=== PATIENT | female | born 1970 | race Caucasian/White ===

== ENCOUNTER 2020-08-30 02:47 | Inpatient (IN) ==
[2020-08-30 03:25] LABS: Basophils # 0.1 10*3/uL (0.0-0.2); Basophils % 0.6 % (0.0-0.8); Eosinophils # 0.3 10*3/uL (0.0-0.87); Eosinophils % 2.7 % (0.00-10.9); Hematocrit 36.8 VOL% (35.7-47.0); Hemoglobin 12.5 GM/DL (12.0-16.0); Immature Granulocytes % 0.4 %; Immature Granulocytes Absolute 0.04 #; Lymphocytes # 1.4 10*3/uL (1.4-4.0); Lymphocytes % 15.1 % (21.3-54.2); Mean Corpuscular Volume 90.9 FL (87-102); Mean Platelet Volume 10.6 FL (9.6-12.0); Monocytes % 9.5 % (1.7-12.7); Neutrophils % 71.7 % (38.7-73.9); Platelet Count 226 T/CUMM (130-400); Red Blood Count 4.05 MC/CUMM (3.8-5.5); Red Cell Distribution Width 13.2 % (9.3-17.3); White Blood Count 9.5 T/CUMM (4-12)
[2020-08-30 03:50] LABS: Barbiturates Screen,Urine Negative (Negative); Benzodiazepines Screen,Urine Negative (Negative); Cannabinoid Screen,Urine Positive (Negative); Opiate Screen,Urine Negative (Negative); Phencyclidine Screen,Urine Negative (Negative)
[2020-08-30 03:56] LABS: Alanine Aminotransferase 22 U/L (13-56); Albumin 3.3 G/DL (3.4-5.0); Alkaline Phosphatase 142 U/L (45-117); Aspartate Amino Transferase 14 U/L (0-37); Bilirubin,Total < 0.39 MG/DL (0.2-1.0); Blood Urea Nitrogen 12 MG/DL (7-18); Calcium 8.7 MG/DL (8.5-10.1); Carbon Dioxide 23 MMOL/L (21-32); Estimated Glom Filtration Rate 96 ML/MIN; Glucose 122 MG/DL (74-106); Osmolality,Calculated 273.8 MOS/KG (273-304); Potassium 3.1 MMOL/L (3.5-5.1); Sodium 137 MMOL/L (136-145); Total Protein 7.5 G/DL (6.4-8.2)
[2020-08-30 04:03] LABS: Bilirubin,Urine Negative (Negative); Blood, Urine Moderate mg/dL (Negative); Glucose,Urine (UA) Negative (Negative); Ketones,Urine Negative (Negative); Mucus,Urine Many /LPF (Occasional); Nitrite,Urine Negative (Negative); Protein,Urine 30 MG/DL; RBC,Urine 5 /HPF (0-4); Squamous Epithelial Cell,Urine Occasional /HPF (0-10); Urine Appearance CLEAR (Clear); Urine Color Yellow (Yellow); Urine Specific Gravity 1.028 (1.001-1.035)
[2020-08-30] MEDS ORDERED: ENOXAPARIN 30 MG/0.3 ML SYRINGE SUBCUT STA (06:10)
[2020-08-30] MEDS ORDERED: ENOXAPARIN 100 MG/ML SYRINGE SUBCUT ONE (06:26)
[2020-08-30] MEDS ORDERED: ONDANSETRON 4 MG/2 ML VIAL IV PRN (09:08)
[2020-08-30] MEDS ORDERED: GLUCAGON 1 MG VIAL IM PRN (09:08)
[2020-08-30] MEDS ORDERED: DEXTROSE 50% 25 GM/50 ML VIAL IV PRN (09:08)
[2020-08-30] MEDS ORDERED: ACETAMINOPHEN 325 MG TABLET PO PRN (09:08)
[2020-08-30] MEDS ORDERED: ALBUTEROL/IPRATROPIUM 3 ML NEB RESP TX PRN (10:43)
[2020-08-30] MEDS: OLANZapine 5 MG TABLET PO SCH (11:09)
[2020-08-30] MEDS: POTASSIUM CHLORIDE 20 MEQ TABLET PO SCH ×2 (11:10→16:43)
[2020-08-30] MEDS: carBAMazepine 200 MG TABLET PO SCH ×2 (16:55→21:41)
[2020-08-30] MEDS: WARFARIN 5 MG TABLET PO SCH (17:17)
[2020-08-30] MEDS: ENOXAPARIN 100 MG/ML SYRINGE SUBCUT SCH (17:17)
[2020-08-30] MEDS: NICOTINE 21 MG/24 HR PATCH TRANSDERM PRN (19:14)
[2020-08-30] MEDS ORDERED: APIXABAN 5 MG TABLET PO SCH (21:00)
[2020-08-30] MEDS: clonazePAM 0.5 MG TABLET PO SCH (21:41)
[2020-08-31 05:01] LABS: Basophils % 0.8 % (0.0-0.8); Eosinophils # 0.2 10*3/uL (0.0-0.87); Eosinophils % 4.5 % (0.00-10.9); Hemoglobin 12.1 GM/DL (12.0-16.0); Immature Granulocytes % 0.4 %; Immature Granulocytes Absolute 0.02 #; Lymphocytes # 1.6 10*3/uL (1.4-4.0); Lymphocytes % 30.8 % (21.3-54.2); Mean Corpuscular HGB Conc 34.6 GM/DL (32-36); Mean Platelet Volume 10.7 FL (9.6-12.0); Monocytes % 10.3 % (1.7-12.7); Neutrophils % 53.2 % (38.7-73.9); Platelet Count 208 T/CUMM (130-400); Red Blood Count 3.89 MC/CUMM (3.8-5.5); Red Cell Distribution Width 13.1 % (9.3-17.3); White Blood Count 5.1 T/CUMM (4-12)
[2020-08-31 05:12] LABS: INR 0.9; PT Patient Result 10.6 SECS (10.5-12.0)
[2020-08-31 05:20] LABS: Calcium 8.4 MG/DL (8.5-10.1); Osmolality,Calculated 271.8 MOS/KG (273-304); Potassium 3.6 MMOL/L (3.5-5.1)
[2020-08-31 05:26] LABS: Band Neutrophils 1 % (0-10); Eosinophils 4 % (0-10); Hypochromasia 1+; Lymphocytes 26 % (20-55); Microcytosis 1+; Platelet Estimate Normal; Segmented Neutrophils 59 % (50-85); Total Cells Counted 100
[2020-08-31] MEDS: ENOXAPARIN 100 MG/ML SYRINGE SUBCUT SCH ×2 (06:14→18:06)
[2020-08-31] MEDS ORDERED: POTASSIUM CHLORIDE 20 MEQ TABLET PO ONE (07:19)
[2020-08-31] MEDS: OLANZapine 5 MG TABLET PO SCH (09:03)
[2020-08-31] MEDS: carBAMazepine 200 MG TABLET PO SCH ×3 (09:03→21:10)
[2020-08-31] MEDS: PANTOPRAZOLE 40 MG TABLET PO SCH (09:03)
[2020-08-31] MEDS: clonazePAM 0.5 MG TABLET PO SCH ×2 (10:35→21:09)
[2020-08-31] MEDS: WARFARIN 5 MG TABLET PO SCH (18:06)
[2020-08-31] MEDS: NICOTINE 21 MG/24 HR PATCH TRANSDERM PRN (18:39)
[2020-09-01 05:34] LABS: INR 0.9; PT Patient Result 10.2 SECS (10.5-12.0)
[2020-09-01 05:48] LABS: Basophils # 0.1 10*3/uL (0.0-0.2); Basophils % 1.1 % (0.0-0.8); Eosinophils # 0.3 10*3/uL (0.0-0.87); Eosinophils % 6.2 % (0.00-10.9); Hematocrit 37.1 VOL% (35.7-47.0); Hemoglobin 12.5 GM/DL (12.0-16.0); Immature Granulocytes % 0.4 %; Immature Granulocytes Absolute 0.02 #; Lymphocytes # 1.7 10*3/uL (1.4-4.0); Lymphocytes % 36.8 % (21.3-54.2); Mean Corpuscular HGB Conc 33.7 GM/DL (32-36); Mean Corpuscular Volume 92.3 FL (87-102); Mean Platelet Volume 10.9 FL (9.6-12.0); Monocytes % 10.4 % (1.7-12.7); Neutrophils % 45.1 % (38.7-73.9); Platelet Count 238 T/CUMM (130-400); Red Blood Count 4.02 MC/CUMM (3.8-5.5); White Blood Count 4.7 T/CUMM (4-12)
[2020-09-01 06:03] LABS: Calcium 8.3 MG/DL (8.5-10.1); Osmolality,Calculated 274.7 MOS/KG (273-304); Potassium 3.4 MMOL/L (3.5-5.1)
[2020-09-01] MEDS: ENOXAPARIN 100 MG/ML SYRINGE SUBCUT SCH ×2 (06:09→17:35)
[2020-09-01 06:13] LABS: Hypochromasia 1+; Microcytosis 1+; Platelet Estimate Adequate
[2020-09-01] MEDS ORDERED: POTASSIUM CHLORIDE 20 MEQ TABLET PO ONE (07:33)
[2020-09-01] MEDS: clonazePAM 0.5 MG TABLET PO SCH ×2 (09:10→20:19)
[2020-09-01] MEDS: carBAMazepine 200 MG TABLET PO SCH ×3 (09:11→20:19)
[2020-09-01] MEDS: PANTOPRAZOLE 40 MG TABLET PO SCH (09:11)
[2020-09-01] MEDS: OLANZapine 5 MG TABLET PO SCH (09:11)
[2020-09-01] MEDS: WARFARIN 5 MG TABLET PO SCH (17:36)
[2020-09-02] MEDS: ENOXAPARIN 100 MG/ML SYRINGE SUBCUT SCH ×2 (05:05→17:11)
[2020-09-02 06:30] LABS: PT Patient Result 11.1 SECS (10.5-12.0)
[2020-09-02 06:36] LABS: Calcium 8.8 MG/DL (8.5-10.1); Osmolality,Calculated 270.8 MOS/KG (273-304); Potassium 3.5 MMOL/L (3.5-5.1)
[2020-09-02] MEDS: clonazePAM 0.5 MG TABLET PO SCH ×2 (09:03→20:25)
[2020-09-02] MEDS: carBAMazepine 200 MG TABLET PO SCH ×3 (09:04→20:25)
[2020-09-02] MEDS: PANTOPRAZOLE 40 MG TABLET PO SCH (09:04)
[2020-09-02] MEDS: NICOTINE 21 MG/24 HR PATCH TRANSDERM PRN (09:04)
[2020-09-02] MEDS: OLANZapine 5 MG TABLET PO SCH (09:04)
[2020-09-02] MEDS: WARFARIN 5 MG TABLET PO SCH (17:11)
[2020-09-03 05:32] LABS: PT Patient Result 11.7 SECS (10.5-12.0)
[2020-09-03 05:38] LABS: Calcium 8.7 MG/DL (8.5-10.1); Osmolality,Calculated 274.7 MOS/KG (273-304); Potassium 3.7 MMOL/L (3.5-5.1)
[2020-09-03] MEDS: ENOXAPARIN 100 MG/ML SYRINGE SUBCUT SCH ×2 (05:53→17:29)
[2020-09-03] MEDS: NICOTINE 21 MG/24 HR PATCH TRANSDERM PRN (09:56)
[2020-09-03] MEDS: PANTOPRAZOLE 40 MG TABLET PO SCH (09:57)
[2020-09-03] MEDS: clonazePAM 0.5 MG TABLET PO SCH ×2 (09:57→20:10)
[2020-09-03] MEDS: carBAMazepine 200 MG TABLET PO SCH ×3 (09:57→20:10)
[2020-09-03] MEDS: OLANZapine 5 MG TABLET PO SCH (09:57)
[2020-09-03 13:31] LABS: Cancer Antigen 19-9 < 1.20 U/ML (0-35); HIV Antigen/Antibody Result Nonreactive (Nonreactive); Hepatitis B Core IgM Quant 0.08 Index; Hepatitis B Surface Ag Quant < 0.10 Index; Hepatitis B Surface Ag Result Non-Reactive (NonReactive); Hepatitis C Virus Ab Quant 0.13 Index; Hepatitis C Virus Ab Result Non-Reactive (NonReactive)
[2020-09-03] MEDS: WARFARIN 10 MG TABLET PO SCH (17:28)
[2020-09-03] MEDS ORDERED: WARFARIN 7.5 MG TABLET PO SCH (18:00)
[2020-09-04] MEDS: ENOXAPARIN 100 MG/ML SYRINGE SUBCUT SCH ×2 (05:42→17:54)
[2020-09-04 06:45] LABS: INR 1.1; PT Patient Result 11.8 SECS (10.5-12.0)
[2020-09-04] MEDS: PANTOPRAZOLE 40 MG TABLET PO SCH (09:18)
[2020-09-04] MEDS: clonazePAM 0.5 MG TABLET PO SCH ×2 (09:18→20:44)
[2020-09-04] MEDS: OLANZapine 5 MG TABLET PO SCH (09:18)
[2020-09-04] MEDS: carBAMazepine 200 MG TABLET PO SCH ×3 (09:18→20:45)
[2020-09-04] MEDS: NICOTINE 21 MG/24 HR PATCH TRANSDERM PRN (09:25)
[2020-09-04] MEDS: WARFARIN 10 MG TABLET PO SCH (17:54)
[2020-09-05 05:45] LABS: INR 1.4; PT Patient Result 15.3 SECS (10.5-12.0)
[2020-09-05] MEDS: ENOXAPARIN 100 MG/ML SYRINGE SUBCUT SCH ×2 (06:23→17:56)
[2020-09-05] MEDS: carBAMazepine 200 MG TABLET PO SCH ×3 (09:23→21:11)
[2020-09-05] MEDS: clonazePAM 0.5 MG TABLET PO SCH ×2 (09:23→21:11)
[2020-09-05] MEDS: OLANZapine 5 MG TABLET PO SCH (09:23)
[2020-09-05] MEDS: PANTOPRAZOLE 40 MG TABLET PO SCH (09:23)
[2020-09-05] MEDS: NICOTINE 21 MG/24 HR PATCH TRANSDERM PRN (09:24)
[2020-09-05] MEDS: WARFARIN 10 MG TABLET PO SCH (17:56)
[2020-09-06 05:58] LABS: INR 1.7; PT Patient Result 18.6 SECS (10.5-12.0)
[2020-09-06] MEDS: ENOXAPARIN 100 MG/ML SYRINGE SUBCUT SCH ×2 (06:18→18:01)
[2020-09-06] MEDS: NICOTINE 21 MG/24 HR PATCH TRANSDERM PRN (08:36)
[2020-09-06] MEDS: OLANZapine 5 MG TABLET PO SCH (08:36)
[2020-09-06] MEDS: clonazePAM 0.5 MG TABLET PO SCH ×2 (08:37→20:37)
[2020-09-06] MEDS: PANTOPRAZOLE 40 MG TABLET PO SCH (08:37)
[2020-09-06] MEDS: carBAMazepine 200 MG TABLET PO SCH ×3 (08:37→20:37)
[2020-09-06] MEDS: WARFARIN 10 MG TABLET PO SCH (18:01)
[2020-09-07] MEDS: ENOXAPARIN 100 MG/ML SYRINGE SUBCUT SCH (05:49)
[2020-09-07 06:02] LABS: INR 1.6; PT Patient Result 17.3 SECS (10.5-12.0)
[2020-09-07 07:36] VITALS: BP 130/80
[2020-09-07] MEDS: NICOTINE 21 MG/24 HR PATCH TRANSDERM PRN (08:26)
[2020-09-07] MEDS: OLANZapine 5 MG TABLET PO SCH (08:27)
[2020-09-07] MEDS: PANTOPRAZOLE 40 MG TABLET PO SCH (08:27)
[2020-09-07] MEDS: carBAMazepine 200 MG TABLET PO SCH (08:27)
[2020-09-07] MEDS: clonazePAM 0.5 MG TABLET PO SCH (08:27)
== END 2020-09-07 11:27 | disposition home or self-care (01) | DRG 134 ==
LOC: N.EDINP 02:47 → N.4E 02:47 → N.ED 02:47 → N.EDINP 12:58 → SUATTDRO 09-02 14:31
PROVIDERS: ADMIT Internal Medicine; ATTEND Internal Medicine